=== PATIENT | male | born 1975 | race Two or more races ===

== ENCOUNTER 2018-06-16 02:43 | Emergency (ER) | payer MEDICAID, OTHER ==
[~2018-06-16] VITALS: Ht 182.9 cm; Wt 90.7 kg
[2018-06-16 02:53] VITALS: BP 136/89
== END 2018-06-16 07:07 | disposition left against medical advice (07) ==
LOC: ER 02:43 → EDBD 02:43 → ER 07:07
DX: F41.9 Anxiety disorder, unspecified (principal); Z53.21 Procedure and treatment not carried out due to patient leaving prior to being seen by health care provider

== ENCOUNTER 2019-09-25 16:52 | Emergency (ER) | payer MEDICAID ==
[~2019-09-25] VITALS: Ht 177.8 cm; Wt 83.9 kg
[2019-09-25 17:03] VITALS: BP 118/70
== END 2019-09-25 17:17 | disposition home or self-care (01) ==
LOC: ER 16:52
DX: S81.812A Laceration without foreign body, left lower leg, initial encounter (principal); S21.212A Laceration without foreign body of left back wall of thorax without penetration into thoracic cavity, initial encounter; X58.XXXA Exposure to other specified factors, initial encounter; Y93.89 Activity, other specified; Y92.89 Other specified places as the place of occurrence of the external cause; Y99.8 Other external cause status